=== PATIENT | male | born 1985 | race Caucasian/White ===

== ENCOUNTER 2017-03-14 16:17 | Emergency (ER) | payer OTHER ==
--- NOTE | 2017-03-14 16:48 | ED CLINICAL REPORT ---
Clinical Report - Physicians/Mid Levels [facility] [address] [place] [address] 03/14/2017 16:18 [id number] Time Seen: 16:28. Arrived- By private vehicle. Historian- patient. HISTORY OF PRESENT ILLNESS Chief Complaint: INJURY TO FACE. Location of injuries- face. The injury occurred just prior to arrival. ( A battery operated hand drill twisted out of his hand and struck him on his central forehead). Occurred at home. The patient complains of mild pain. The patient sustained a mild blow to the head. No neck pain or loss of consciousness. Not dazed. Also he believes that he has a thorn in the tactile pulp of the R index finger. x 2-3 days. REVIEW OF SYSTEMS No seizure, numbness, hearing loss, loss of vision or chest pain. No weakness, difficulty breathing or bladder dysfunction. He sustained skin laceration. PAST HISTORY Negative. Tetanus immunization status is up-to-date. SOCIAL HISTORY Current every day smoker. ADDITIONAL NOTES The nursing notes have been reviewed. PHYSICAL EXAM Vital Signs: 03/14/2017 16:26 BP: 139/98. HR: 78. RR: 18. O2 saturation: 100%. Temp: 97.8 F. Appearance: Alert. No acute distress. Head: Forehead: swelling, mild tenderness and superficial 1.0 cm laceration of the central forehead (vertical orientation). No erythema, abrasion, ecchymosis, puncture wound or foreign body. No deformity. Neck: Painless ROM. Non-tender. Extremities: Tip of right index finger: mild tenderness and swelling. No erythema. No nail avulsion, exposed bone or loss of the nail bed on the right index finger or tip amputation of the right index finger. PROGRESS AND PROCEDURES Laceration Repair: Location: forehead. Length: 1 cm. Complexity: simple (closed with tissue adhesive). Wound depth/shape- linear. Wound is clean. Distal neuro/vascular/tendon status normal. Wound prep- Cleaned with soap and water. Closure of superficial layer. Skin adhesive used. No local anesthesia. Post-procedure: he is stable. Tetanus immunization up-to-date. Estimated blood loss: 0 mL. Course of Care: Finger tip is slightly swollen and tender. No FB palpable. Watchful waiting at this point. Will give antibiotics for the possibility of mild cellulitis. Disposition: Discharged. CLINICAL IMPRESSION Single superficial laceration to the forehead. Cellulitis of the right index finger. INSTRUCTIONS (SUNBLOCK TO THE WOUND FOR A YEAR. FOR FINGER WARM SOAKS. IMMEDIATE RECHECK IF WORSE). Prescription Medications: Bactrim DS 800 mg / 160 mg: Take 1 tablet orally every 12 hours for 7 days. Dispense fourteen (14). No refills. Substitution is permissible. Follow-up: Follow up with your doctor FOR FINGER in ten days if not well. Understanding of the discharge instructions verbalized by patient. (Electronically signed by Edgar Dunn MD 03/15/2017 12:43)
--- NOTE | 2017-03-14 16:48 | ED NURSING NOTES ---
Clinical Report - Nurses [place] [address] [place] [address] 03/14/2017 16:18 [id number] Triage time 16:Mar 14 2017. Acuity: LEVEL 4. Chief Complaint: INJURY TO HEAD. MARY ANN COMA SCORE: [place] Coma Scale: 15- eyes open spontaneously (4); best verbal response- oriented x 4 (5); best motor response- obeys commands (6). --16:30 Ata Vásquez R.N. 16:26 03/14/17. BP: 139/98. HR: 78. RR: 18. O2 saturation: 100%. Temp: 97.8 F. Pain level now 0/10. --16:30 Ata Vásquez R.N. Weight: 58.9 kg stated. Height/Length: 67 inches Per Patient. BMI: 20.4. --16:30 Ata Vásquez R.N. Medications None. --16:28 Ata Vásquez R.N. Allergies No Known Drug Allergy. --16:28 Ata Vásquez R.N. History Arrived by private vehicle. Historian: patient. This occurred just prior to arrival. Occurred at home and at work. He sustained a laceration. ( Was drilling and the drill slipped and cut his forehead.). He has had a headache and neck pain. No loss of consciousness. 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 PAST MEDICAL HX: No history of diabetes mellitus, hypertension, heart disease or lung disease. Last tetanus: (2010). SOCIAL HX: Current every day light tobacco smoker (cigarette)- less than 1/2 a pack per day. Alcohol use; consumes two beers a day. No drug use. SELF HARM ASSESSMENT: A self harm assessment was performed. The patient answered "no" to the question "Have you recently felt down, depressed, or hopeless?" and "Do you have thoughts of harming or killing yourself?". FALL RISK ASSESSMENT: Fall risk assessment completed. No fall risk identified. NUTRITIONAL RISK ASSESSMENT: The nutritional risk assessment revealed no deficiencies. FUNCTIONAL ASSESSMENT: Functional assessment: no impairments noted. LEARNING NEEDS ASSESSMENT: The learning needs assessment revealed no barriers. ABUSE ASSESSMENT: Abuse assessment: (yes) The patient was asked "Do you feel safe in your home?". SKIN INTEGRITY ASSESSMENT: Skin integrity risk assessment completed. No skin integrity risk identified. --16:30 Ata Vásquez R.N. PROBLEMS: no known problems. ADDITIONAL SURGERIES: no known surgeries. Interventions ID band on patient. --16:30 Ata Vásquez R.N. DISPOSITION / DISCHARGE Departure time: 17:00 Mar 14 2017. Condition at departure: improved. No learning barriers present. Discharge instructions provided and reviewed with the patient. Reviewed warnings. Reviewed medication(s). Treatments reviewed. Reviewed referrals. Patient verbalized understanding. Written instructions provided in [place]ian. The patient was discharged home. He left the Emergency Department ambulatory and via private vehicle. Patient driving. --17:11 Ata Vásquez R.N. 16:26 03/14/17. BP: 139/98. HR: 78. RR: 18. O2 saturation: 100%. Temp: 97.8 F. Pain level now 0/10. --17:11 Ata Vásquez R.N. Locked/Released at 03/14/2017 19:15 by Ata Vásquez R.N.
--- NOTE | 2017-03-14 16:48 | ED NURSING NOTES ---
Clinical Report - Nurses [place] [address] [place] [address] 03/14/2017 16:18 [id number] Triage time 16:Mar 14 2017. Acuity: LEVEL 4. Chief Complaint: INJURY TO HEAD. MARY ANN COMA SCORE: [place] Coma Scale: 15- eyes open spontaneously (4); best verbal response- oriented x 4 (5); best motor response- obeys commands (6). --16:30 Ata Vásquez R.N. 16:26 03/14/17. BP: 139/98. HR: 78. RR: 18. O2 saturation: 100%. Temp: 97.8 F. Pain level now 0/10. --16:30 Ata Vásquez R.N. Weight: 58.9 kg stated. Height/Length: 67 inches Per Patient. BMI: 20.4. --16:30 Ata Vásquez R.N. Medications None. --16:28 Ata Vásquez R.N. Allergies No Known Drug Allergy. --16:28 Ata Vásquez R.N. History Arrived by private vehicle. Historian: patient. This occurred just prior to arrival. Occurred at home and at work. He sustained a laceration. ( Was drilling and the drill slipped and cut his forehead.). He has had a headache and neck pain. No loss of consciousness. 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 PAST MEDICAL HX: No history of diabetes mellitus, hypertension, heart disease or lung disease. Last tetanus: (2010). SOCIAL HX: Current every day light tobacco smoker (cigarette)- less than 1/2 a pack per day. Alcohol use; consumes two beers a day. No drug use. SELF HARM ASSESSMENT: A self harm assessment was performed. The patient answered "no" to the question "Have you recently felt down, depressed, or hopeless?" and "Do you have thoughts of harming or killing yourself?". FALL RISK ASSESSMENT: Fall risk assessment completed. No fall risk identified. NUTRITIONAL RISK ASSESSMENT: The nutritional risk assessment revealed no deficiencies. FUNCTIONAL ASSESSMENT: Functional assessment: no impairments noted. LEARNING NEEDS ASSESSMENT: The learning needs assessment revealed no barriers. ABUSE ASSESSMENT: Abuse assessment: (yes) The patient was asked "Do you feel safe in your home?". SKIN INTEGRITY ASSESSMENT: Skin integrity risk assessment completed. No skin integrity risk identified. --16:30 Ata Vásquez R.N. PROBLEMS: no known problems. ADDITIONAL SURGERIES: no known surgeries. Interventions ID band on patient. --16:30 Ata Vásquez R.N. DISPOSITION / DISCHARGE Departure time: 17:00 Mar 14 2017. Condition at departure: improved. No learning barriers present. Discharge instructions provided and reviewed with the patient. Reviewed warnings. Reviewed medication(s). Treatments reviewed. Reviewed referrals. Patient verbalized understanding. Written instructions provided in Peruvian. The patient was discharged home. He left the Emergency Department ambulatory and via private vehicle. Patient driving. --17:11 Ata Vásquez R.N. 16:26 03/14/17. BP: 139/98. HR: 78. RR: 18. O2 saturation: 100%. Temp: 97.8 F. Pain level now 0/10. --17:11 Ata Vásquez R.N. Locked/Released at 03/14/2017 19:15 by Ata Vásquez R.N.
--- NOTE | 2017-03-14 16:48 | ED CLINICAL REPORT ---
Clinical Report - Physicians/Mid Levels [facility] [address] [place] [address] 03/14/2017 16:18 [id number] Time Seen: 16:28. Arrived- By private vehicle. Historian- patient. HISTORY OF PRESENT ILLNESS Chief Complaint: INJURY TO FACE. Location of injuries- face. The injury occurred just prior to arrival. ( A battery operated hand drill twisted out of his hand and struck him on his central forehead). Occurred at home. The patient complains of mild pain. The patient sustained a mild blow to the head. No neck pain or loss of consciousness. Not dazed. Also he believes that he has a thorn in the tactile pulp of the R index finger. x 2-3 days. REVIEW OF SYSTEMS No seizure, numbness, hearing loss, loss of vision or chest pain. No weakness, difficulty breathing or bladder dysfunction. He sustained skin laceration. PAST HISTORY Negative. Tetanus immunization status is up-to-date. SOCIAL HISTORY Current every day smoker. ADDITIONAL NOTES The nursing notes have been reviewed. PHYSICAL EXAM Vital Signs: 03/14/2017 16:26 BP: 139/98. HR: 78. RR: 18. O2 saturation: 100%. Temp: 97.8 F. Appearance: Alert. No acute distress. Head: Forehead: swelling, mild tenderness and superficial 1.0 cm laceration of the central forehead (vertical orientation). No erythema, abrasion, ecchymosis, puncture wound or foreign body. No deformity. Neck: Painless ROM. Non-tender. Extremities: Tip of right index finger: mild tenderness and swelling. No erythema. No nail avulsion, exposed bone or loss of the nail bed on the right index finger or tip amputation of the right index finger. PROGRESS AND PROCEDURES Laceration Repair: Location: forehead. Length: 1 cm. Complexity: simple (closed with tissue adhesive). Wound depth/shape- linear. Wound is clean. Distal neuro/vascular/tendon status normal. Wound prep- Cleaned with soap and water. Closure of superficial layer. Skin adhesive used. No local anesthesia. Post-procedure: he is stable. Tetanus immunization up-to-date. Estimated blood loss: 0 mL. Course of Care: Finger tip is slightly swollen and tender. No FB palpable. Watchful waiting at this point. Will give antibiotics for the possibility of mild cellulitis. Disposition: Discharged. CLINICAL IMPRESSION Single superficial laceration to the forehead. Cellulitis of the right index finger. INSTRUCTIONS (SUNBLOCK TO THE WOUND FOR A YEAR. FOR FINGER WARM SOAKS. IMMEDIATE RECHECK IF WORSE). Prescription Medications: Bactrim DS 800 mg / 160 mg: Take 1 tablet orally every 12 hours for 7 days. Dispense fourteen (14). No refills. Substitution is permissible. Follow-up: Follow up with your doctor FOR FINGER in ten days if not well. Understanding of the discharge instructions verbalized by patient. (Electronically signed by Edgar Dunn MD 03/15/2017 12:43)
--- NOTE | 2017-03-15 12:43 | ED MAR SUMMARY ---
..... Medication Administration Record [facility] [address], [place] [id number] Patient: MATTEO PEREZ Visit ID: [id number] 31y, M Weight: 58.9 kg Height/Length: 67 in BMI: 20.4 ALLERGIES: No Known Drug Allergy
--- NOTE | 2017-03-15 12:43 | ED MAR SUMMARY ---
..... Medication Administration Record [facility] [address] [place], [place] [id number] Patient: MATTEO PEREZ Visit ID: [id number] 31y, M Weight: 58.9 kg Height/Length: 67 in BMI: 20.4 ALLERGIES: No Known Drug Allergy
--- NOTE | 2017-03-15 12:43 | ED DISCHARGE INSTRUCTIONS ---
Patient: MATTEO PEREZ General Instructions [facility] VisitID: [id number] [place] [address] 31y, M Registration Date/Time: 03/14/2017 Single superficial laceration to the forehead. Cellulitis of the right index finger. INSTRUCTIONS (SUNBLOCK TO THE WOUND FOR A YEAR. FOR FINGER WARM SOAKS. IMMEDIATE RECHECK IF WORSE). Prescription Medications: Bactrim DS 800 mg / 160 mg: Take 1 tablet orally every 12 hours for 7 days. Dispense fourteen (14). No refills. Substitution is permissible. Follow-up: Follow up with your doctor FOR FINGER in ten days if not well. Understanding of the discharge instructions verbalized by patient. ADDITIONAL INFORMATION Laceration, Face (Suture Or Tape) Alaceration is a cut through the skin. This will require stitches if it is deep. Minor cuts may be treated with surgical tape. Home care The following guidelines will help you care for your laceration at home: If a bandage was applied and it becomes wet or dirty, replace it. Otherwise, leave it in place for the first 24 hours, then change it once a day or as directed. If sutures were used, clean the wound daily: After removing the bandage, wash the area with soap and water. Use a wet cotton swab to loosen and remove any blood or crust that forms. After cleaning, keep the wound clean and dry. Talk with your doctor before applying any antibiotic ointment to the wound. Reapply a fresh bandage. You may remove the bandage to shower as usual after the first 24 hours, but do not soak the area in water (no swimming) until the sutures are removed. If surgical tape was used, keep the area clean and dry. If it becomes wet, blot it dry with a towel. The doctor may prescribe an antibiotic cream or ointment to prevent infection. Do not stop taking this medication until you have have finished the prescribed course or the doctor tells you to stop. The doctor may also prescribe medications for pain. Follow the doctor's instructions for taking these medications.If you have chronic liver or kidney disease or ever had a stomach ulcer or GI bleeding, talk with your doctor before using these medicines. Follow-up care Follow up with your health care provider. Most facial cuts heal in five days with no problem. However, even with proper treatment, a wound infection sometimes occurs. Therefore, check the wound daily for the warning signs listed below. Stitches should not be left in the face for more thanfivedays; otherwise, permanent stitch angeles may form. If surgical tape closures were used, you may remove them yourself afterfivedays, if they have not fallen off by then. When to seek medical care Get prompt medical attention if any of these occur: Increasing pain in the wound Redness, swelling, or pus coming from the wound If sutures come apart or fall out before 5 days If the surgical tape closures fall off before 5 days, or the wound edges reopen Fever of 100.4F (38C) or higher, or as directed by your health care provider Bleeding not controlled by direct pressure Laceration, Face(Skin Glue) A laceration is a cut through the skin. A laceration on your face hasbeen closed with a type of skin glue. Home Care Medications: Acetaminophen (Tylenol) or ibuprofen (Motrin, Advil) may be taken for pain, unless another pain medicine was prescribed. NOTE: If you have chronic liver or kidney disease or ever had a stomach ulcer or GI bleeding, talk with your doctor before using these medications. General Care: Keep the wound clean and dry. You may shower or bathe as usual, but do not use soaps, lotions, or ointments on the wound area. Do not scrub the wound. After bathing, pat the wound dry with a soft towel. Do not scratch, rub, or pick at the film. Do not place tape directly over the film. Do not apply liquids (such as peroxide), ointments, or creams to the wound while the film is in place. Most facialskin wounds heal without problems. However, an infection sometimes occurs despite proper treatment. Therefore, watch for the signs of infection listed below. Follow Up as directed by the doctor or our staff. The skin glue film will fall off naturally in 5 to 10 days. Get Prompt Medical Attention if any of the following occur: Signs of infection: Fever of 100.4F (38C) or higher, or as directed by your healthcare provider Increasing pain in the wound Increasing redness or swelling Pus coming from the wound Wound bleeds more than a small amount or bleeding doesnt stop Wound edges come apart Cellulitis You have an infection of the skin known as cellulitis. This usually starts with a scrape, cut, insect bite, blister or other opening in the skin which becomes infected. This is a serious condition. It must be watched closely to be sure the infection is not spreading. With antibiotic treatment, the size of the red area will gradually shrink in size until the skin returns to normal. This will take 7-10 days. The red area should never increase in size once the antibiotic medicine has been started. Occasionally, an infection will be resistant to one antibiotic and another one will have to be used. Home Care: 1) Limit the use of the affected part, since excess movement can cause the infection to spread. 2) If the infection is on your leg, walk as little as possible during the first few days of the treatment. Keep your leg elevated while sitting. This will reduce swelling. 3) Take all of the antibiotic medicine exactly as directed until it is gone. Be careful not to miss any doses, especially during the first seven days. Follow Up with your doctor or this facility as directed. Check the infected area daily for the warning signs listed below. Get Prompt Medical Attention if any of the following occur: -- Spreading area of redness -- Increasing swelling or pain -- Appearance of pus or drainage -- Fever over 100.4 F (38.0 C) oral, or over 101.4 F (38.6 C) rectal, after two days on antibiotics You have been given the following additional information: Laceration, Face (Suture Or Tape) Laceration, Face (Skin Glue) Cellulitis (Electronically signed by Edgar Dunn MD 03/15/2017 12:43)
--- NOTE | 2017-03-15 12:43 | ED MED RECONCILIATION SUMMARY ---
Patient: MATTEO PEREZ Medication Reconciliation Report [facility] VisitID: [id number] [place] [address] 31y, M Registration Date/Time: 03/14/2017 Weight: 58.9 kg Height/Length: 67 in. BMI: 20.4 ALLERGIES: No Known Drug Allergy The patient's Home Medications are listed below: NONE. The source(s) of the original Home Medication information: Not obtained. The following Medications were given to the patient in the Emergency Department: None. The following Medications were prescribed to the patient: Bactrim DS 800 mg / 160 mg: Take 1 tablet orally every 12 hours for 7 days. Dispense fourteen (14). No refills. Substitution is permissible. -- Edgar Dunn MD
--- NOTE | 2017-03-15 12:43 | ED MED RECONCILIATION SUMMARY ---
Patient: MATTEO PEREZ Medication Reconciliation Report [facility] VisitID: [id number] [place] [address] 31y, M Registration Date/Time: 03/14/2017 Weight: 58.9 kg Height/Length: 67 in. BMI: 20.4 ALLERGIES: No Known Drug Allergy The patient's Home Medications are listed below: NONE. The source(s) of the original Home Medication information: Not obtained. The following Medications were given to the patient in the Emergency Department: None. The following Medications were prescribed to the patient: Bactrim DS 800 mg / 160 mg: Take 1 tablet orally every 12 hours for 7 days. Dispense fourteen (14). No refills. Substitution is permissible. -- Edgar Dunn MD
== END 2017-03-14 17:00 | disposition home or self-care (01) ==
LOC: ED SRH 16:17
PROC: 0HQ1XZZ Repair Face Skin, External Approach (ICD-10-PCS; principal; 2017-03-14)
DX: S01.81XA Laceration without foreign body of other part of head, initial encounter (principal); L03.011 Cellulitis of right finger; W29.8XXA Contact with other powered hand tools and household machinery, initial encounter; Y92.009 Unspecified place in unspecified non-institutional (private) residence as the place of occurrence of the external cause
CPT/HCPCS: 82708